=== PATIENT | female | born 1950 | race African-American/Black ===

== ENCOUNTER → 2021-09-21 | Day surgery (SDC) | payer MEDICARE, OTHER ==
[2021-09-20 10:17] LABS: BASOPHILS # (AUTO) 0.1 (0.0-0.1); BASOPHILS % 1.1 % (0.0-1.0); EOSINOPHILS # (AUTO) 0.3 (0.0-0.4); EOSINOPHILS % 3.4 % (0.0-6.0); HEMATOCRIT 35.7 % (34.2-44.1); LYMPHOCYTES % 21.7 % (18.0-39.1); MEAN CORPUSCULAR HEMOGLOBIN 29.3 pg (28-32); MEAN CORPUSCULAR HGB CONC 30.8 g/dL (31-35); MEAN CORPUSCULAR VOLUME 94.9 fL (81-99); MONOCYTES # (AUTO) 0.6 (0.2-0.8); MONOCYTES % 5.9 % (4.4-11.3); NEUTROPHILS # (AUTO) 6.3 (2.1-6.9); NEUTROPHILS % 67.6 % (38.7-80.0); PLATELET COUNT 301 x10e3/uL (140-360); RED BLOOD COUNT 3.76 x10e6/uL (3.6-5.1); RED CELL DISTRIBUTION WIDTH 13.6 % (11.7-14.4)
[2021-09-20 10:32] LABS: ANION GAP 11.8 mmol/L (8-16); CREATININE, SERUM 1.04 mg/dL (0.57-1.11); POTASSIUM 3.8 mmol/L (3.5-5.1)
[~2021-09-21] MED LIST: ARAVA20 MG PO; ATORVASTATIN CA20 MG PO; B12 ACTIVE1000 MCG PO; BIOTIN1 MG PO; CANDICIDAL CAP1 EACH PO; CORTIZONE-1028 G1 TOP; DEXAMETHASONE SOD PHOS INJ 4 MG/ML SDV ONE; FOLATE PO; HYDROCHLOROTHIA25 MG PO; KETOROLAC TROMETHAMINE 30 MG/ML VIAL ONE; LIDOCAINE HCL 2% LOCAL INJ 5 ML SDV VIAL INJ ONE; LOSARTAN POTASS25 MG PO; LOSARTAN-HCTZ1 EAC1 PO; OMEPRAZOLE40 MG PO; ONDANSETRON HCL INJ 2MG/ML 2ML 2 MG/ML VIAL ONE; POVIDONE IODINE 0.05% 0.05 % ML PO ONE; PROPOFOL IV EMULSION 10 MG/ML 20 ML VIAL ONE; SEVOFLURANE INHAL SOLN 250 ML PEN BTL ONE; VITAMIN D310 MCG PO
[2021-09-21 11:52] VITALS: BP 129/73
== END | disposition home or self-care (01) ==
LOC: OR 07:25
PROVIDERS: ATTEND Obstetrics & Gynecology
DX: C54.1 Malignant neoplasm of endometrium (principal); D25.0 Submucous leiomyoma of uterus; N84.0 Polyp of corpus uteri; I10 Essential (primary) hypertension; Z01.810 Encounter for preprocedural cardiovascular examination; Z01.812 Encounter for preprocedural laboratory examination; Z01.818 Encounter for other preprocedural examination; Z20.822 Contact with and (suspected) exposure to COVID-19; Z79.899 Other long term (current) drug therapy; Z68.33 Body mass index [BMI] 33.0-33.9, adult
CPT/HCPCS: 36415; 58561; 71046; 80048; 85025; 88305; 93005; J1100; J1885; J2001; J2405; J2704; U0002

== ENCOUNTER 2023-10-06 22:25 | Emergency (ER) | payer MEDICARE ==
[~2023-10-06] VITALS: Ht 165.1 cm; Wt 90.7 kg
[~2023-10-06 22:25] MED LIST changes: -DEXAMETHASONE SOD PHOS INJ 4 MG/ML SDV ONE; -KETOROLAC TROMETHAMINE 30 MG/ML VIAL ONE; -LIDOCAINE HCL 2% LOCAL INJ 5 ML SDV VIAL INJ ONE; -ONDANSETRON HCL INJ 2MG/ML 2ML 2 MG/ML VIAL ONE; -POVIDONE IODINE 0.05% 0.05 % ML PO ONE; -PROPOFOL IV EMULSION 10 MG/ML 20 ML VIAL ONE; -SEVOFLURANE INHAL SOLN 250 ML PEN BTL ONE
[2023-10-06] MEDS: ONDANSETRON HCL INJ 2MG/ML 2ML 2 MG/ML VIAL IV STA (23:03)
[2023-10-06] MEDS: SODIUM CHLORIDE 0.9% 1000ML 1,000 ML IV SCH (23:03)
[2023-10-06] MEDS ORDERED: ONDANSETRON HCL INJ 2MG/ML 2ML 2 MG/ML VIAL ONE (23:05)
[2023-10-06] MEDS ORDERED: SODIUM CHLORIDE 0.9% 1000ML 1,000 ML ONE (23:05)
[2023-10-06] MEDS ORDERED: IOPAMIDOL 370 MG/ML 100 ML INFUS..BTL INJ ONE (23:07)
[2023-10-07] MEDS ORDERED: ONDANSETRON ODT4 MG PO (00:26)
[2023-10-07 01:07] VITALS: BP 150/75; PULSE 94; RESP 16; TEMP 98.4; O2SAT 95
[2023-10-07] MEDS ORDERED: MECLIZINE HCL 12.5 MG TAB ONE (01:53)
[2023-10-07] MEDS ORDERED: ONDANSETRON HCL 4 MG ORAL DISINTEGRATING TAB ONE (02:15)
== END 2023-10-07 01:00 | disposition home or self-care (01) ==
LOC: FSED 22:42
DX: R05.9 Cough, unspecified (principal); U07.1 COVID-19; R55 Syncope and collapse; D64.9 Anemia, unspecified; E86.0 Dehydration; R53.1 Weakness; R19.7 Diarrhea, unspecified; M06.9 Rheumatoid arthritis, unspecified; I10 Essential (primary) hypertension; E78.5 Hyperlipidemia, unspecified
CPT/HCPCS: 71250; 74177; 93005; 99284; J2405; J7030; J8597; Q0162; Q9967

== ENCOUNTER 2024-08-04 12:24 | Inpatient (IN) | payer MEDICARE ==
[~2024-08-04] VITALS: Ht 165.1 cm; Wt 90.7 kg
[~2024-08-04 12:24] MED LIST changes: +ONDANSETRON ODT4 MG PO
[2024-08-04 13:50] VITALS: TEMP 98.3
[2024-08-04 14:29] LABS: BASOPHILS # (AUTO) 0.1 (0.0-0.1); EOSINOPHILS # (AUTO) 0.1 (0.0-0.4); EOSINOPHILS % 0.6 % (0.0-6.0); HEMATOCRIT 38.4 % (34.2-44.1); HEMOGLOBIN 12.6 g/dL (12.0-16.0); LYMPHOCYTES # (AUTO) 1.9 (1.0-3.2); LYMPHOCYTES % 14.4 % (18.0-39.1); MEAN CORPUSCULAR HEMOGLOBIN 29.4 pg (28-32); MEAN CORPUSCULAR HGB CONC 32.8 g/dL (31-35); MEAN CORPUSCULAR VOLUME 89.7 fL (81-99); MONOCYTES # (AUTO) 0.8 (0.2-0.8); MONOCYTES % 5.9 % (4.4-11.3); NEUTROPHILS % 77.9 % (38.7-80.0); PLATELET COUNT 331 x10e3/uL (140-360); RED BLOOD COUNT 4.28 x10e6/uL (3.6-5.1); WHITE BLOOD COUNT 12.84 x10e3/uL (4.8-10.8)
[2024-08-04 14:45] LABS: ALBUMIN 3.6 g/dL (3.5-5.0); ALBUMIN/GLOBULIN RATIO 0.8 (0.8-2.0); ANION GAP 20.4 mmol/L (8-16); BILIRUBIN,TOTAL 0.5 mg/dL (0.2-1.2); CREATININE, SERUM 1.84 mg/dL (0.57-1.11); POTASSIUM 4.4 mmol/L (3.5-5.1)
[2024-08-04 15:05] LABS: CLARITY,URINE HAZY (CLEAR); COLOR,URINE YELLOW (YELLOW); GLUCOSE, URINE >=1000 (NEGATIVE); KETONES,URINE 1+ (NEGATIVE); LEUKOCYTE ESTERASE ,URINE NEGATIVE (NEGATIVE); NITRITE,URINE NEGATIVE (NEGATIVE); PH,URINE 5.5 (5 - 7); PROTEIN,URINE DIPSTICK NEGATIVE (NEGATIVE)
[2024-08-04 15:06] LABS: BACTERIA,URINE FEW /HPF; BILIRUBIN,URINE SMALL (NEGATIVE); EPITHELIAL CELLS,URINE FEW /LPF; RBC,URINE 0-5 /HPF (0-5); URINE UROBILINOGEN 0.2 mg/dL (0.2 - 1); WBC,URINE (MAN) 0-5 /HPF (0-5)
[2024-08-04] MEDS ORDERED: INSULIN REGULAR, HUMAN 100 UNIT/1 ML ONE (15:13)
[2024-08-04 15:29] LABS: ABG HCO3 0 mmol/L (22-26); ABG PCO2 38 mmHg (35-45); ABG PH 7.42 (7.35-7.45); ABG PO2 111 mmHg (80-105); ABG TCO2 24.5
[2024-08-04 15:36] LABS: ABG HCO3 25 mmol/L (22-26); ABG PCO2 38 mmHg (35-45); ABG PH 7.42 (7.35-7.45); ABG PO2 111 mmHg (80-105); ABG TCO2 26
[2024-08-04] MEDS: SODIUM CHLORIDE 0.9% 1000ML 1,000 ML IV SCH ×3 (16:45→20:22)
[2024-08-04] MEDS: INSULIN REGULAR, HUMAN 100 UNIT/1 ML IV ONE (16:47)
[2024-08-04] MEDS ORDERED: ONDANSETRON HCL INJ 2MG/ML 2ML 2 MG/ML VIAL IV PRN (17:00)
[2024-08-04] MEDS ORDERED: DEXTROSE 50% SYRINGE 50 ML IV PRN (17:00)
[2024-08-04 17:08] VITALS: PULSE 90; RESP 15
[2024-08-04 18:30] VITALS: BP 161/102; PULSE 96; RESP 18; TEMP 97.9; O2SAT 100
[2024-08-04 20:00] VITALS: BP 142/82; PULSE 90; RESP 18; TEMP 98.1; O2SAT 99
[2024-08-04 21:00] VITALS: BP 142/82; PULSE 90; RESP 18; TEMP 98.1; O2SAT 99
[2024-08-04] MEDS: INSULIN LISPRO 100 UNIT/1 ML 3ML VIAL SQ SCH (21:37)
[2024-08-04] MEDS: INSULIN GLARGINE 100 UNITS/ML VIAL SQ ONE ×2 (21:38→21:48)
[2024-08-04] MEDS ORDERED: NEURONTIN100 MG PO (21:43)
[2024-08-05] VITALS (9 sets, daily range): BP systolic 127–189; BP diastolic 60–95; PULSE 82–92; RESP 16–19; TEMP 97.9–98.6; O2SAT 98–100
[2024-08-05 06:29] LABS: BASOPHILS # (AUTO) 0.1 (0.0-0.1); BASOPHILS % 0.7 % (0.0-1.0); EOSINOPHILS # (AUTO) 0.2 (0.0-0.4); EOSINOPHILS % 1.3 % (0.0-6.0); HEMATOCRIT 32.6 % (34.2-44.1); HEMOGLOBIN 10.5 g/dL (12.0-16.0); LYMPHOCYTES # (AUTO) 2.8 (1.0-3.2); LYMPHOCYTES % 20.6 % (18.0-39.1); MEAN CORPUSCULAR HEMOGLOBIN 29.4 pg (28-32); MEAN CORPUSCULAR HGB CONC 32.2 g/dL (31-35); MEAN CORPUSCULAR VOLUME 91.3 fL (81-99); MONOCYTES % 7.4 % (4.4-11.3); NEUTROPHILS # (AUTO) 9.3 (2.1-6.9); PLATELET COUNT 268 x10e3/uL (140-360); RED BLOOD COUNT 3.57 x10e6/uL (3.6-5.1); RED CELL DISTRIBUTION WIDTH 13.1 % (11.7-14.4); WHITE BLOOD COUNT 13.42 x10e3/uL (4.8-10.8)
[2024-08-05 07:06] LABS: ALBUMIN/GLOBULIN RATIO 0.8 (0.8-2.0); ANION GAP 14.4 mmol/L (8-16); BILIRUBIN,TOTAL 0.4 mg/dL (0.2-1.2); CALCIUM 9.9 mg/dL (8.4-10.2); CREATININE, SERUM 1.09 mg/dL (0.57-1.11); TOTAL PROTEIN 6.7 g/dL (6.5-8.1)
[2024-08-05 07:13] LABS: POTASSIUM 3.4 mmol/L (3.5-5.1)
[2024-08-05] MEDS: SOD CHL 0.45%/POT CHL 20MEQ 1,000 ML IV SCH (10:36)
[2024-08-05] MEDS: INSULIN LISPRO 100 UNIT/1 ML 3ML VIAL SQ SCH ×3 (11:34→16:23)
[2024-08-05] MEDS: GABAPENTIN 100 MG CAP PO SCH (16:20)
[2024-08-05] MEDS: ATORVASTATIN 20 MG TAB PO SCH (20:56)
[2024-08-05] MEDS: INSULIN GLARGINE 100 UNITS/ML VIAL SQ SCH (20:59)
[2024-08-05] MEDS ORDERED: INSULIN GLARGINE 100 UNITS/ML VIAL SQ SCH (21:00)
[2024-08-05] MEDS: HYDRALAZINE HCL 20 MG/ML VIAL IV PRN (23:59)
[2024-08-06 06:02] LABS: BASOPHILS # (AUTO) 0.1 (0.0-0.1); BASOPHILS % 0.8 % (0.0-1.0); EOSINOPHILS # (AUTO) 0.2 (0.0-0.4); EOSINOPHILS % 1.8 % (0.0-6.0); HEMATOCRIT 34.8 % (34.2-44.1); HEMOGLOBIN 11.2 g/dL (12.0-16.0); LYMPHOCYTES # (AUTO) 2.9 (1.0-3.2); LYMPHOCYTES % 25.8 % (18.0-39.1); MEAN CORPUSCULAR HEMOGLOBIN 29.8 pg (28-32); MEAN CORPUSCULAR HGB CONC 32.2 g/dL (31-35); MEAN CORPUSCULAR VOLUME 92.6 fL (81-99); MONOCYTES # (AUTO) 0.8 (0.2-0.8); MONOCYTES % 7.3 % (4.4-11.3); NEUTROPHILS # (AUTO) 7.1 (2.1-6.9); PLATELET COUNT 233 x10e3/uL (140-360); RED BLOOD COUNT 3.76 x10e6/uL (3.6-5.1); RED CELL DISTRIBUTION WIDTH 13.2 % (11.7-14.4); WHITE BLOOD COUNT 11.03 x10e3/uL (4.8-10.8)
[2024-08-06 06:38] LABS: ANION GAP 13.6 mmol/L (8-16); CALCIUM 9.1 mg/dL (8.4-10.2); CREATININE, SERUM 0.94 mg/dL (0.57-1.11); POTASSIUM 3.6 mmol/L (3.5-5.1)
[2024-08-06 07:40] VITALS: BP 155/76; PULSE 94; RESP 19; TEMP 98.3; O2SAT 100
[2024-08-06] MEDS: LOSARTAN POTASSIUM 25 MG TAB PO SCH (08:15)
[2024-08-06 10:08] VITALS: BP 155/76; PULSE 94; RESP 19; TEMP 98.3; O2SAT 100
[2024-08-06] MEDS: NIFEDIPINE CR 30 MG TAB PO ONE (10:15)
[2024-08-06 11:30] VITALS: BP 134/68; PULSE 99; RESP 19; TEMP 97.9; O2SAT 99
[2024-08-06 15:43] VITALS: BP 127/87; PULSE 80; RESP 17; TEMP 98.6; O2SAT 100
[2024-08-06] MEDS: INSULIN LISPRO 100 UNIT/1 ML 3ML VIAL SQ SCH (17:21)
[2024-08-06] MEDS: INSULIN GLARGINE 100 UNITS/ML VIAL SQ SCH (20:52)
[2024-08-06 21:00] VITALS: BP 158/85; PULSE 88; RESP 18; TEMP 97.4; O2SAT 100
[2024-08-06 21:17] VITALS: BP 158/85; PULSE 88; RESP 18; TEMP 97.4; O2SAT 100
[2024-08-07 00:44] VITALS: BP 160/86; PULSE 87; RESP 16; TEMP 98.1; O2SAT 100
[2024-08-07 05:07] VITALS: BP 133/74; PULSE 89; RESP 17; TEMP 98; O2SAT 99
[2024-08-07] MEDS: NIFEDIPINE CR 30 MG TAB PO SCH (06:29)
[2024-08-07 08:00] VITALS: BP 158/93; PULSE 88; RESP 18; TEMP 98.2; O2SAT 99
[2024-08-07 09:12] VITALS: BP 158/93; PULSE 89; RESP 17; TEMP 98; O2SAT 99
[2024-08-07] MEDS ORDERED: ONDANSETRON HCL 4 MG ORAL DISINTEGRATING TAB PO PRN (09:45)
[2024-08-08] MEDS ORDERED: PANTOPRAZOLE SOD 40 MG TABEC PO SCH (07:30)
== END 2024-08-07 13:10 | disposition home or self-care (01) | DRG 638 ==
LOC: ER 15:49 → ERHOLD 16:57 → MED/SURG2 18:35
PROVIDERS: ADMIT Internal Medicine; ATTEND Internal Medicine
PROC: 4A133R1 Monitoring of Arterial Saturation, Peripheral, Percutaneous Approach (ICD-10-PCS; principal; 2024-08-04)
DX: E11.65 Type 2 diabetes mellitus with hyperglycemia (principal); E87.20 Acidosis, unspecified; N17.9 Acute kidney failure, unspecified; I16.0 Hypertensive urgency; E11.42 Type 2 diabetes mellitus with diabetic polyneuropathy; E86.0 Dehydration; I10 Essential (primary) hypertension; K21.9 Gastro-esophageal reflux disease without esophagitis; E78.5 Hyperlipidemia, unspecified; M54.9 Dorsalgia, unspecified; M06.9 Rheumatoid arthritis, unspecified; M19.90 Unspecified osteoarthritis, unspecified site; T38.3X6A Underdosing of insulin and oral hypoglycemic [antidiabetic] drugs, initial encounter; Z91.120 Patient's intentional underdosing of medication regimen due to financial hardship; Z79.84 Long term (current) use of oral hypoglycemic drugs; Z90.710 Acquired absence of both cervix and uterus; Z85.43 Personal history of malignant neoplasm of ovary; Z83.3 Family history of diabetes mellitus
CPT/HCPCS: 36415; 36600; 74176; 80048; 80053; 81001; 82805; 82948; 83036; 84439; 84443; 85025; 96372; 99284; J0360; J1815; J2470; J7030

== ENCOUNTER 2024-12-17 14:21 | Emergency (ER) | payer MEDICARE ==
[~2024-12-17] VITALS: Ht 162.6 cm; Wt 89.4 kg
[~2024-12-17 14:21] MED LIST changes: +NEURONTIN100 MG PO
[2024-12-17 14:27] VITALS: PULSE 94; RESP 16; TEMP 97.9; O2SAT 99
[2024-12-17] MEDS ORDERED: HUMULIN R100 UNIT/2 INJ (14:35)
[2024-12-17] MEDS: KETOROLAC TROMETHAMINE 60 MG/2 ML VIAL IM ONE (15:08)
[2024-12-17] MEDS ORDERED: MELOXICAM7.5 MG PO (15:17)
== END 2024-12-17 15:15 | disposition home or self-care (01) ==
LOC: FSED 14:24
DX: M70.52 Other bursitis of knee, left knee (principal); I10 Essential (primary) hypertension; E11.9 Type 2 diabetes mellitus without complications; K21.9 Gastro-esophageal reflux disease without esophagitis; E78.5 Hyperlipidemia, unspecified; M54.9 Dorsalgia, unspecified; Z85.43 Personal history of malignant neoplasm of ovary
CPT/HCPCS: 96372; 99283; J1885